=== PATIENT | male | born 1955 | race African-American/Black ===

== ENCOUNTER 2019-10-14 08:45 | Inpatient (IN) ==
[2019-10-14] MEDS ORDERED: ACETAMINOPHEN 500 MG TABLET ONE (09:06)
[2019-10-14] MEDS ORDERED: ACETAMINOPHEN 500 MG TABLET PO STA (09:36)
[2019-10-14] MEDS ORDERED: SODIUM CHLORIDE 0.9% 1,000 ML IV STA ×2 (09:36→09:58)
[2019-10-14] MEDS ORDERED: BENZTROPINE 2 MG/2 ML AMP IV ONE (09:40)
[2019-10-14 09:56] LABS: Basophils % 0.3 % (0.0-0.8); Hematocrit 39.9 VOL% (42.0-52.0); Immature Granulocytes % 1.2 %; Immature Granulocytes Absolute 0.04 #; Lymphocytes # 0.3 10*3/uL (1.4-4.0); Lymphocytes % 9.2 % (21.2-54.2); Mean Corpuscular HGB Conc 32.6 GM/DL (32-36); Mean Corpuscular Volume 81.6 FL (87-102); Mean Platelet Volume 11.6 FL (9.6-12.0); Monocytes % 13.1 % (1.7-12.7); Neutrophils % 76.2 % (38.7-73.9); Platelet Count 133 T/CUMM (130-400); Red Blood Count 4.89 MC/CUMM (3.8-5.5); Red Cell Distribution Width 13.7 % (9.3-17.3); White Blood Count 3.4 T/CUMM (4-12)
[2019-10-14 10:09] LABS: Bilirubin,Total 0.8 MG/DL (0.2-1.0); Calcium 7.9 MG/DL (8.5-10.1); Osmolality,Calculated 287.8 MOS/KG (273-304); Total Protein 6.4 G/DL (6.4-8.3)
[2019-10-14] MEDS ORDERED: PIPERACILLIN/TAZOBACTAM 3,375 MG VIAL IV ONE (10:19)
[2019-10-14] MEDS ORDERED: VANCOMYCIN 1,000 MG VIAL ONE (10:19)
[2019-10-14] MEDS ORDERED: SODIUM CHLORIDE 0.9% 2,500 ML IV ONE (10:21)
[2019-10-14] MEDS ORDERED: MEROPENEM 1,000 MG in SODIUM CHLORIDE 0.9% 100 ML IV ONE (10:23)
[2019-10-14] MEDS ORDERED: VANCOMYCIN INJ 1,250 MG in SODIUM CHLORIDE 0.9% 250 ML IV SCH ×2 (10:30→13:30)
[2019-10-14] MEDS ORDERED: MEROPENEM 500 MG VIAL ONE (10:32)
[2019-10-14 11:01] LABS: Band Neutrophils 12 % (0-10); Hypochromasia 2+; Lymphocytes 14 % (20-55); Metamyelocytes 3 %; Microcytosis 1+; Polychromasia Slight; Reactive Lymphocytes Few; Segmented Neutrophils 54 % (50-85); Total Cells Counted 100
[2019-10-14 11:02] LABS: Atypical Lymphocytes Few; Platelet Estimate Adequate
[2019-10-14] MEDS ORDERED: ALBUTEROL 2.5 MG/3 ML NEB RESP TX PRN (11:23)
[2019-10-14] MEDS ORDERED: ONDANSETRON 4 MG/2 ML VIAL IV PRN (11:23)
[2019-10-14] MEDS ORDERED: SODIUM BICARBONATE 50 MEQ/50 ML VIAL IV STA (11:26)
[2019-10-14] MEDS ORDERED: VANCOMYCIN INJ 250 MG in SODIUM CHLORIDE 0.9% 100 ML IV ONE (11:30)
[2019-10-14] MEDS ORDERED: LACTATED RINGERS 1,000 ML IV SCH (11:30)
[2019-10-14 12:07] LABS: Apearance,Urine CLOUDY (Clear); Bilirubin,Urine Negative (Negative); Blood, Urine Large mg/dL (Negative); Glucose,Urine (UA) Negative (Negative); Hyaline Casts,Urine 26 /LPF (0-3); Ketones,Urine Negative (Negative); Mucus,Urine Moderate /LPF (Occasional); Nitrite,Urine Negative (Negative); Protein,Urine 30 MG/DL; RBC,Urine 13 /HPF (0-4); Sperm,Urine Many /HPF (Negative); Urine Color Amber (Yellow); Urine Specific Gravity 1.025 (1.001-1.035); Urine Urobilinogen < 2.0 EU/DL (0.2-1.0)
[2019-10-14 12:12] LABS: ABG Base Excess -6.6 MMOL/L (-2.5-2.5); ABG Oxygen Saturation 98.5 % (95-100); ABG PCO2 32.1 MM HG (35-48); ABG PH 7.356 (7.35-7.45); ABG TCO2 16.4 MMOL/L (23-27); Allen Test Positive
[2019-10-14] MEDS: SODIUM BICARB INJ 150 MEQ in DEXTROSE 5% 850 ML IV SCH ×2 (12:50→19:05)
[2019-10-14] MEDS: metroNIDAZOLE INJ 500 MG in PREMIX 1 EACH IV SCH ×2 (13:00→20:09)
[2019-10-14] MEDS: PANTOPRAZOLE 40 MG VIAL IV SCH (13:01)
[2019-10-14] MEDS: ENOXAPARIN 30 MG/0.3 ML SYRINGE SUBCUT SCH (13:01)
[2019-10-14] MEDS ORDERED: POTASSIUM CHLORIDE 20 MEQ TABLET PO ONE (13:28)
[2019-10-14] MEDS ORDERED: SODIUM CHLORIDE 0.9% 500 ML IV ONE (16:41)
[2019-10-14] MEDS: MEROPENEM 500 MG in SODIUM CHLORIDE 0.9% 100 ML IV SCH (17:16)
[2019-10-14] MEDS ORDERED: NOREPINEPHRINE 4 MG/4 ML VIAL IV ONE (18:15)
[2019-10-14] MEDS: NOREPINEPHRINE 8 MG in SODIUM CHLORIDE 0.9% 242 ML IV PRN (18:21)
[2019-10-15] MEDS: MEROPENEM 500 MG in SODIUM CHLORIDE 0.9% 100 ML IV SCH ×3 (00:45→17:10)
[2019-10-15] MEDS: SODIUM BICARB INJ 150 MEQ in DEXTROSE 5% 850 ML IV SCH ×4 (02:35→22:43)
[2019-10-15] MEDS: NOREPINEPHRINE 8 MG in SODIUM CHLORIDE 0.9% 242 ML IV PRN ×3 (03:20→20:55)
[2019-10-15] MEDS: metroNIDAZOLE INJ 500 MG in PREMIX 1 EACH IV SCH ×3 (04:25→19:26)
[2019-10-15 05:38] LABS: Basophils % 0.7 % (0.0-0.8); Hematocrit 33.6 VOL% (42.0-52.0); Hemoglobin 11.4 GM/DL (14.0-18.0); Immature Granulocytes % 1.2 %; Immature Granulocytes Absolute 0.05 #; Lymphocytes # 0.6 10*3/uL (1.4-4.0); Lymphocytes % 13.4 % (21.2-54.2); Mean Corpuscular HGB Conc 33.9 GM/DL (32-36); Mean Corpuscular Volume 79.6 FL (87-102); Mean Platelet Volume 11.3 FL (9.6-12.0); Monocytes % 9.8 % (1.7-12.7); Neutrophils % 74.9 % (38.7-73.9); Platelet Count 102 T/CUMM (130-400); Red Blood Count 4.22 MC/CUMM (3.8-5.5); Red Cell Distribution Width 13.8 % (9.3-17.3); White Blood Count 4.2 T/CUMM (4-12)
[2019-10-15 06:11] LABS: Band Neutrophils 4 % (0-10); Lymphocytes 16 % (20-55); Platelet Estimate Decreased; Segmented Neutrophils 70 % (50-85); Total Cells Counted 100
[2019-10-15 06:12] LABS: Hypochromasia 1+; Microcytosis 1+
[2019-10-15 06:15] LABS: Albumin 2.2 G/DL (3.4-5.0); Bilirubin,Total 0.6 MG/DL (0.2-1.0); Calcium 7.2 MG/DL (8.5-10.1); Osmolality,Calculated 294.3 MOS/KG (273-304); Total Protein 5.2 G/DL (6.4-8.3)
[2019-10-15] MEDS: POTASSIUM CHLORIDE RIDER 10 MEQ in PREMIX 1 EACH IV PRN ×5 (07:09→11:40)
[2019-10-15] MEDS ORDERED: LACTATED RINGERS 1,000 ML IV ONE (08:34)
[2019-10-15] MEDS: OLANZapine 5 MG TABLET PO SCH (10:49)
[2019-10-15] MEDS: PANTOPRAZOLE 40 MG VIAL IV SCH (11:03)
[2019-10-15] MEDS: ENOXAPARIN 30 MG/0.3 ML SYRINGE SUBCUT SCH (11:05)
[2019-10-15] MEDS: BENZTROPINE 1 MG TABLET PO SCH ×2 (11:14→17:08)
[2019-10-15 11:57] LABS: Hepatitis B Core IgM Quant 0.06 Index; Hepatitis B Surface Ag Quant 0.52 Index; Hepatitis B Surface Ag Result Negative (Negative); Hepatitis C Virus Ab Quant 0.12 Index; Hepatitis C Virus Ab Result Negative (Negative)
[2019-10-15] MEDS: GABAPENTIN 300 MG CAPSULE PO SCH (17:08)
[2019-10-15] MEDS: FANAPT PO SCH (17:14)
[2019-10-15] MEDS ORDERED: POTASSIUM CHLORIDE 20 MEQ TABLET PO ONE ×2 (17:49→18:25)
[2019-10-15] MEDS: MIRTAZAPINE 15 MG TABLET PO SCH (20:13)
[2019-10-16] MEDS: MEROPENEM 500 MG in SODIUM CHLORIDE 0.9% 100 ML IV SCH (00:46)
[2019-10-16] MEDS: metroNIDAZOLE INJ 500 MG in PREMIX 1 EACH IV SCH (03:55)
[2019-10-16 05:25] LABS: Basophils % 0.3 % (0.0-0.8); Eosinophils % 0.2 % (0.00-10.9); Hemoglobin 10.9 GM/DL (14.0-18.0); Immature Granulocytes Absolute 0.06 #; Lymphocytes # 0.8 10*3/uL (1.4-4.0); Lymphocytes % 12.8 % (21.2-54.2); Mean Corpuscular Volume 80.5 FL (87-102); Mean Platelet Volume 11.4 FL (9.6-12.0); Monocytes % 10.5 % (1.7-12.7); Neutrophils % 75.2 % (38.7-73.9); Platelet Count 104 T/CUMM (130-400); Red Cell Distribution Width 13.8 % (9.3-17.3); White Blood Count 5.9 T/CUMM (4-12)
[2019-10-16 05:48] LABS: Anisocytosis Slight; Hypochromasia 1+; Lymphocytes 13 % (20-55); Microcytosis 1+; Platelet Estimate Normal; Segmented Neutrophils 83 % (50-85); Total Cells Counted 100
[2019-10-16 05:50] LABS: Target Cells Few
[2019-10-16 05:55] LABS: Albumin 2.1 G/DL (3.4-5.0); Bilirubin,Total 0.5 MG/DL (0.2-1.0); Calcium 7.5 MG/DL (8.5-10.1); Osmolality,Calculated 290.3 MOS/KG (273-304); Total Protein 4.8 G/DL (6.4-8.3)
[2019-10-16] MEDS: SODIUM BICARB INJ 150 MEQ in DEXTROSE 5% 850 ML IV SCH (06:38)
[2019-10-16] MEDS: POTASSIUM CHLORIDE RIDER 10 MEQ in PREMIX 1 EACH IV PRN ×3 (06:43→10:16)
[2019-10-16] MEDS ORDERED: LACTATED RINGERS 2,000 ML IV ONE (08:16)
[2019-10-16] MEDS: OLANZapine 5 MG TABLET PO SCH (09:18)
[2019-10-16] MEDS: GABAPENTIN 300 MG CAPSULE PO SCH ×2 (09:18→16:00)
[2019-10-16] MEDS: POTASSIUM CHLORIDE 20 MEQ TABLET PO SCH ×2 (09:18→12:58)
[2019-10-16] MEDS: BENZTROPINE 1 MG TABLET PO SCH ×3 (09:18→17:06)
[2019-10-16] MEDS: FANAPT PO SCH ×2 (09:19→16:22)
[2019-10-16] MEDS: PANTOPRAZOLE 40 MG VIAL IV SCH (12:58)
[2019-10-16] MEDS: ENOXAPARIN 30 MG/0.3 ML SYRINGE SUBCUT SCH (12:59)
[2019-10-16] MEDS: metroNIDAZOLE INJ 250 MG in IV BAG 1 EACH IV SCH ×2 (12:59→21:32)
[2019-10-16] MEDS ORDERED: MEROPENEM 500 MG in SODIUM CHLORIDE 0.9% 100 ML IV SCH (13:00)
[2019-10-16] MEDS: MIRTAZAPINE 15 MG TABLET PO SCH (21:32)
[2019-10-17] MEDS: metroNIDAZOLE INJ 250 MG in IV BAG 1 EACH IV SCH (05:26)
[2019-10-17 05:50] LABS: Basophils % 0.2 % (0.0-0.8); Eosinophils # 0.1 10*3/uL (0.0-0.87); Eosinophils % 1.4 % (0.00-10.9); Hemoglobin 10.4 GM/DL (14.0-18.0); Immature Granulocytes % 0.9 %; Immature Granulocytes Absolute 0.04 #; Lymphocytes # 0.9 10*3/uL (1.4-4.0); Lymphocytes % 20.2 % (21.2-54.2); Mean Corpuscular HGB Conc 32.5 GM/DL (32-36); Mean Corpuscular Volume 81.4 FL (87-102); Mean Platelet Volume 11.9 FL (9.6-12.0); Monocytes % 10.9 % (1.7-12.7); Neutrophils % 66.4 % (38.7-73.9); Platelet Count 104 T/CUMM (130-400); Red Blood Count 3.93 MC/CUMM (3.8-5.5); Red Cell Distribution Width 13.9 % (9.3-17.3); White Blood Count 4.4 T/CUMM (4-12)
[2019-10-17 06:06] LABS: Calcium 7.7 MG/DL (8.5-10.1); Osmolality,Calculated 287.3 MOS/KG (273-304)
[2019-10-17] MEDS: OLANZapine 5 MG TABLET PO SCH (09:17)
[2019-10-17] MEDS: BENZTROPINE 1 MG TABLET PO SCH ×3 (09:17→17:00)
[2019-10-17] MEDS: ENOXAPARIN 30 MG/0.3 ML SYRINGE SUBCUT SCH (09:17)
[2019-10-17] MEDS: PANTOPRAZOLE 40 MG VIAL IV SCH (09:17)
[2019-10-17] MEDS: FANAPT PO SCH ×2 (09:18→16:00)
[2019-10-17] MEDS: GABAPENTIN 300 MG CAPSULE PO SCH ×2 (09:18→17:00)
[2019-10-17] MEDS: metroNIDAZOLE 500 MG TABLET PO SCH ×2 (17:00→20:23)
[2019-10-17] MEDS: MIRTAZAPINE 15 MG TABLET PO SCH (20:23)
[2019-10-18 05:57] LABS: Basophils % 0.2 % (0.0-0.8); Eosinophils # 0.1 10*3/uL (0.0-0.87); Eosinophils % 1.2 % (0.00-10.9); Hematocrit 33.1 VOL% (42.0-52.0); Hemoglobin 10.7 GM/DL (14.0-18.0); Immature Granulocytes Absolute 0.04 #; Lymphocytes # 1.1 10*3/uL (1.4-4.0); Lymphocytes % 25.9 % (21.2-54.2); Mean Corpuscular HGB Conc 32.3 GM/DL (32-36); Mean Corpuscular Volume 81.1 FL (87-102); Mean Platelet Volume 11.3 FL (9.6-12.0); Monocytes % 16.4 % (1.7-12.7); Neutrophils % 55.3 % (38.7-73.9); Platelet Count 123 T/CUMM (130-400); Red Blood Count 4.08 MC/CUMM (3.8-5.5); White Blood Count 4.2 T/CUMM (4-12)
[2019-10-18 06:14] LABS: Calcium 7.9 MG/DL (8.5-10.1)
[2019-10-18 06:21] LABS: Band Neutrophils 1 % (0-10); Eosinophils 2 % (0-10); Lymphocytes 18 % (20-55); Segmented Neutrophils 68 % (50-85); Total Cells Counted 100
[2019-10-18 06:22] LABS: Hypochromasia 1+; Microcytosis 1+; Platelet Estimate Adequate
[2019-10-18] MEDS ORDERED: BENZTROPINE 1 MG TABLET PO SCH (08:00)
[2019-10-18] MEDS: ENOXAPARIN 30 MG/0.3 ML SYRINGE SUBCUT SCH (08:49)
[2019-10-18] MEDS: FANAPT PO SCH ×2 (08:49→18:05)
[2019-10-18] MEDS: GABAPENTIN 300 MG CAPSULE PO SCH ×2 (08:50→18:05)
[2019-10-18] MEDS: metroNIDAZOLE 500 MG TABLET PO SCH (08:50)
[2019-10-18] MEDS: OLANZapine 5 MG TABLET PO SCH (08:50)
[2019-10-18] MEDS: BENZTROPINE 1 MG TABLET PO SCH ×3 (08:51→18:05)
[2019-10-18] MEDS: PANTOPRAZOLE 40 MG VIAL IV SCH (12:45)
[2019-10-18] MEDS ORDERED: TUBERCULIN SKIN TEST 0.1 ML SYRINGE INTRADERM ONE (13:00)
[2019-10-18] MEDS ORDERED: MIRTAZAPINE PO SCH (21:00)
[2019-10-18] MEDS: MIRTAZAPINE 15 MG TABLET PO SCH (21:20)
[2019-10-19 05:42] LABS: Basophils % 0.3 % (0.0-0.8); Eosinophils # 0.1 10*3/uL (0.0-0.87); Eosinophils % 1.2 % (0.00-10.9); Hematocrit 34.3 VOL% (42.0-52.0); Hemoglobin 10.9 GM/DL (14.0-18.0); Immature Granulocytes % 1.2 %; Immature Granulocytes Absolute 0.07 #; Lymphocytes # 1.1 10*3/uL (1.4-4.0); Lymphocytes % 19.7 % (21.2-54.2); Mean Corpuscular HGB Conc 31.8 GM/DL (32-36); Mean Corpuscular Volume 83.1 FL (87-102); Monocytes % 13.9 % (1.7-12.7); Neutrophils % 63.7 % (38.7-73.9); Platelet Count 152 T/CUMM (130-400); Red Blood Count 4.13 MC/CUMM (3.8-5.5); Red Cell Distribution Width 14.1 % (9.3-17.3); White Blood Count 5.8 T/CUMM (4-12)
[2019-10-19 06:26] LABS: Calcium 7.9 MG/DL (8.5-10.1)
[2019-10-19] MEDS: GABAPENTIN 300 MG CAPSULE PO SCH ×2 (09:31→16:50)
[2019-10-19] MEDS: OLANZapine 5 MG TABLET PO SCH (09:31)
[2019-10-19] MEDS: BENZTROPINE 1 MG TABLET PO SCH ×3 (09:31→16:50)
[2019-10-19] MEDS: PANTOPRAZOLE 40 MG VIAL IV SCH (09:32)
[2019-10-19] MEDS: FANAPT PO SCH ×2 (09:32→16:51)
[2019-10-19] MEDS: ENOXAPARIN 30 MG/0.3 ML SYRINGE SUBCUT SCH (09:34)
[2019-10-19 11:24] LABS: Albumin 2.1 G/DL (3.4-5.0); Bilirubin,Direct 0.11 MG/DL (0.0-0.20); Bilirubin,Indirect 0.4 MG/DL (0.0-1.0); Bilirubin,Total 0.5 MG/DL (0.2-1.0); Total Protein 4.9 G/DL (6.4-8.3)
[2019-10-19] MEDS: DEXTROSE 5% NACL 0.45% 1,000 ML IV SCH (12:46)
[2019-10-19] MEDS: ACETAMINOPHEN 325 MG TABLET PO PRN (18:16)
[2019-10-19] MEDS: MIRTAZAPINE 15 MG TABLET PO SCH (21:59)
[2019-10-20] MEDS: ACETAMINOPHEN 325 MG TABLET PO PRN ×2 (02:43→20:35)
[2019-10-20 06:59] LABS: Calcium 7.8 MG/DL (8.5-10.1); Osmolality,Calculated 291.1 MOS/KG (273-304)
[2019-10-20 07:03] LABS: Alanine Aminotransferase 123 U/L (16-61); Albumin 2.1 G/DL (3.4-5.0); Alkaline Phosphatase 438 U/L (45-117); Aspartate Amino Transferase 220 U/L (0-37); Bilirubin,Direct < 0.100 MG/DL (0.0-0.20); Bilirubin,Indirect 0.7 MG/DL (0.0-1.0)
[2019-10-20] MEDS ORDERED: PANTOPRAZOLE 40 MG TABLET PO SCH (09:00)
[2019-10-20] MEDS: DEXTROSE 5% NACL 0.45% 1,000 ML IV SCH (09:40)
[2019-10-20] MEDS: BENZTROPINE 1 MG TABLET PO SCH ×3 (09:41→16:44)
[2019-10-20] MEDS: GABAPENTIN 300 MG CAPSULE PO SCH (09:41)
[2019-10-20] MEDS: ENOXAPARIN 30 MG/0.3 ML SYRINGE SUBCUT SCH (09:41)
[2019-10-20] MEDS: OLANZapine 5 MG TABLET PO SCH (09:41)
[2019-10-20] MEDS: FANAPT PO SCH ×2 (09:42→16:44)
[2019-10-20] MEDS: GABAPENTIN 100 MG CAPSULE PO SCH (16:44)
[2019-10-20] MEDS: MIRTAZAPINE 15 MG TABLET PO SCH (20:36)
[2019-10-21] MEDS: DEXTROSE 5% NACL 0.45% 1,000 ML IV SCH (07:30)
[2019-10-21] MEDS: FANAPT PO SCH ×2 (09:05→17:07)
[2019-10-21] MEDS: ENOXAPARIN 30 MG/0.3 ML SYRINGE SUBCUT SCH (09:05)
[2019-10-21] MEDS: GABAPENTIN 100 MG CAPSULE PO SCH ×2 (09:05→17:07)
[2019-10-21] MEDS: OLANZapine 5 MG TABLET PO SCH (09:05)
[2019-10-21] MEDS: BENZTROPINE 1 MG TABLET PO SCH ×3 (09:05→17:07)
[2019-10-21] MEDS: MIRTAZAPINE 15 MG TABLET PO SCH (21:22)
[2019-10-21] MEDS: ACETAMINOPHEN 325 MG TABLET PO PRN (23:23)
[2019-10-22 05:43] LABS: Bilirubin,Total 0.5 MG/DL (0.2-1.0); Calcium 7.7 MG/DL (8.5-10.1); Osmolality,Calculated 290.1 MOS/KG (273-304)
[2019-10-22 07:49] LABS: Basophils % 0.2 % (0.0-0.8); Eosinophils # 0.1 10*3/uL (0.0-0.87); Hematocrit 32.4 VOL% (42.0-52.0); Hemoglobin 10.5 GM/DL (14.0-18.0); Immature Granulocytes % 1.1 %; Immature Granulocytes Absolute 0.07 #; Lymphocytes # 1.4 10*3/uL (1.4-4.0); Lymphocytes % 21.6 % (21.2-54.2); Mean Corpuscular HGB Conc 32.4 GM/DL (32-36); Mean Corpuscular Volume 81.6 FL (87-102); Mean Platelet Volume 10.2 FL (9.6-12.0); Monocytes % 7.1 % (1.7-12.7); Platelet Count 266 T/CUMM (130-400); Red Blood Count 3.97 MC/CUMM (3.8-5.5); White Blood Count 6.3 T/CUMM (4-12)
[2019-10-22] MEDS: FANAPT PO SCH (09:31)
[2019-10-22] MEDS: GABAPENTIN 100 MG CAPSULE PO SCH (09:31)
[2019-10-22] MEDS: ENOXAPARIN 30 MG/0.3 ML SYRINGE SUBCUT SCH (09:31)
[2019-10-22] MEDS: BENZTROPINE 1 MG TABLET PO SCH ×2 (09:31→11:39)
[2019-10-22] MEDS: OLANZapine 5 MG TABLET PO SCH (09:33)
[2019-10-22 12:15] VITALS: BP 128/83
== END 2019-10-22 15:18 | DRG 871 ==
LOC: EDUNIT# → EDBD → N.ED 08:45 → SUATTDRO 11:23 → N.EDINP 11:23 → SUPCPDRO 11:23 → N.CC 12:34 → N.2E 10-16 15:30
PROVIDERS: ADMIT Family Medicine; ATTEND Internal Medicine

== ENCOUNTER 2020-05-20 15:01 | Inpatient (IN) ==
[2020-05-20 16:34] LABS: Basophils % 0.6 % (0.0-0.8); Eosinophils % 0.7 % (0.00-10.9); Hematocrit 33.6 VOL% (42.0-52.0); Hemoglobin 10.7 GM/DL (14.0-18.0); Immature Granulocytes % 0.6 %; Immature Granulocytes Absolute 0.03 #; Lymphocytes # 1.5 10*3/uL (1.4-4.0); Lymphocytes % 27.7 % (21.2-54.2); Mean Corpuscular HGB Conc 31.8 GM/DL (32-36); Mean Corpuscular Volume 79.2 FL (87-102); Monocytes % 12.2 % (1.7-12.7); Neutrophils % 58.2 % (38.7-73.9); Platelet Count 274 T/CUMM (130-400); Red Blood Count 4.24 MC/CUMM (3.8-5.5); Red Cell Distribution Width 14.3 % (9.3-17.3); White Blood Count 5.4 T/CUMM (4-12)
[2020-05-20 16:37] LABS: Barbiturates Screen,Urine Negative (Negative); Benzodiazepines Screen,Urine Negative (Negative); Cannabinoid Screen,Urine Negative (Negative); Opiate Screen,Urine Negative (Negative); Phencyclidine Screen,Urine Negative (Negative)
[2020-05-20 16:38] LABS: Apearance,Urine CLOUDY (Clear); Bacteria,Urine Occasional /HPF (Few); Bilirubin,Urine Negative (Negative); Blood, Urine Moderate mg/dL (Negative); Glucose,Urine (UA) Negative (Negative); Hyaline Casts,Urine 1 /LPF (0-3); Ketones,Urine Negative (Negative); Mucus,Urine Occasional /LPF (Occasional); Nitrite,Urine Negative (Negative); Protein,Urine 100 MG/DL; RBC,Urine 8 /HPF (0-4); Squamous Epithelial Cell,Urine Occasional /HPF (0-10); Urine Color Yellow (Yellow); Urine Specific Gravity 1.018 (1.001-1.035); Urine Urobilinogen < 2.0 EU/DL (0.2-1.0); WBC,Urine 105 /HPF (0-6)
[2020-05-20] MEDS ORDERED: LEVOFLOXACIN INJ 750 MG in PREMIX 1 EACH IV STA (16:51)
[2020-05-20] MEDS ORDERED: SODIUM CHLORIDE 0.9% 1,000 ML IV STA (16:58)
[2020-05-20 17:03] LABS: Alanine Aminotransferase 10 U/L (16-61); Alkaline Phosphatase 1672 U/L (45-117); Aspartate Amino Transferase 16 U/L (0-37); Bilirubin,Total < 0.39 MG/DL (0.2-1.0); Blood Urea Nitrogen 47 MG/DL (7-18); Calcium 9.1 MG/DL (8.5-10.1); Estimated Glom Filtration Rate 60 ML/MIN; Glucose 90 MG/DL (74-106); Osmolality,Calculated 286.7 MOS/KG (273-304); Thyroid Stimulating Hormone 0.762 uIU/ml (0.358-3.74); Total Protein 7.3 G/DL (6.4-8.3)
[2020-05-20] MEDS ORDERED: LACTULOSE 20 GM/30 ML UDCUP PO PRN (18:05)
[2020-05-20] MEDS ORDERED: ONDANSETRON 4 MG/2 ML VIAL IV PRN (18:05)
[2020-05-20] MEDS ORDERED: ALBUTEROL/IPRATROPIUM 3 ML NEB RESP TX PRN (18:05)
[2020-05-20] MEDS ORDERED: DEXTROSE 50% 25 GM/50 ML VIAL IV PRN (18:05)
[2020-05-20] MEDS ORDERED: hydrALAZINE 20 MG/1 ML VIAL IV PRN (18:05)
[2020-05-20] MEDS ORDERED: DOCUSATE SODIUM 100 MG CAPSULE PO PRN (18:05)
[2020-05-20] MEDS ORDERED: MORPHINE 4 MG/1 ML VIAL IV PRN (18:05)
[2020-05-20] MEDS ORDERED: GLUCAGON 1 MG VIAL IM PRN (18:05)
[2020-05-20] MEDS ORDERED: LORazepam 2 MG/1 ML VIAL IV STA (21:55)
[2020-05-20] MEDS: SODIUM CHLORIDE 0.9% 1,000 ML IV SCH (23:00)
[2020-05-20] MEDS: ENOXAPARIN 40 MG/0.4 ML SYRINGE SUBCUT SCH (23:00)
[2020-05-20] MEDS: VANCOMYCIN INJ 1,000 MG in SODIUM CHLORIDE 0.9% 250 ML IV SCH (23:07)
[2020-05-21 07:22] LABS: Basophils % 0.2 % (0.0-0.8); Eosinophils % 0.6 % (0.00-10.9); Hematocrit 36.4 VOL% (42.0-52.0); Hemoglobin 11.6 GM/DL (14.0-18.0); Immature Granulocytes % 0.8 %; Immature Granulocytes Absolute 0.04 #; Lymphocytes # 1.7 10*3/uL (1.4-4.0); Lymphocytes % 32.7 % (21.2-54.2); Mean Corpuscular HGB Conc 31.9 GM/DL (32-36); Mean Corpuscular Volume 79.6 FL (87-102); Mean Platelet Volume 9.6 FL (9.6-12.0); Monocytes % 10.8 % (1.7-12.7); Neutrophils % 54.9 % (38.7-73.9); Platelet Count 286 T/CUMM (130-400); Red Blood Count 4.57 MC/CUMM (3.8-5.5); Red Cell Distribution Width 14.5 % (9.3-17.3); White Blood Count 5.1 T/CUMM (4-12)
[2020-05-21 07:48] LABS: Albumin 3.2 G/DL (3.4-5.0); Bilirubin,Total 1.3 MG/DL (0.2-1.0); Calcium 9.7 MG/DL (8.5-10.1); Osmolality,Calculated 283.7 MOS/KG (273-304); Risk Ratio 4.02; Total Protein 7.7 G/DL (6.4-8.3)
[2020-05-21] MEDS ORDERED: LORazepam 2 MG/1 ML VIAL ONE (08:50)
[2020-05-21] MEDS ORDERED: LORazepam 2 MG/1 ML VIAL IV ONE (08:52)
[2020-05-21 09:41] LABS: Apearance,Urine CLOUDY (Clear); Bacteria,Urine Moderate /HPF (Few); Bilirubin,Urine Negative (Negative); Blood, Urine Moderate mg/dL (Negative); Glucose,Urine (UA) Negative (Negative); Ketones,Urine Negative (Negative); Mucus,Urine Occasional /LPF (Occasional); Nitrite,Urine Negative (Negative); Protein,Urine 100 MG/DL; RBC,Urine 117 /HPF (0-4); Urine Color Amber (Yellow); Urine Specific Gravity 1.019 (1.001-1.035); Urine Urobilinogen < 2.0 EU/DL (0.2-1.0); WBC,Urine 220 /HPF (0-6)
[2020-05-21] MEDS: PANTOPRAZOLE 40 MG TABLET PO SCH (09:48)
[2020-05-21] MEDS: BENZTROPINE 1 MG TABLET PO SCH ×3 (09:48→21:05)
[2020-05-21] MEDS: GABAPENTIN 400 MG CAPSULE PO SCH ×4 (09:48→21:04)
[2020-05-21] MEDS: FINASTERIDE 5 MG TABLET PO SCH (09:48)
[2020-05-21] MEDS: TAMSULOSIN 0.4 MG CAPSULE PO SCH ×2 (09:48→21:04)
[2020-05-21] MEDS: guaiFENesin/DM ER 600-30 MG TABLET PO SCH ×3 (09:55→21:04)
[2020-05-21] MEDS: SODIUM CHLORIDE 0.9% 1,000 ML IV SCH ×2 (12:15→22:49)
[2020-05-21] MEDS: VANCOMYCIN INJ 1,000 MG in SODIUM CHLORIDE 0.9% 250 ML IV SCH ×2 (12:15→22:49)
[2020-05-21] MEDS: ACETAMINOPHEN 325 MG TABLET PO PRN (12:52)
[2020-05-21] MEDS ORDERED: LEVOFLOXACIN INJ 750 MG in PREMIX 1 EACH IV SCH (18:00)
[2020-05-21] MEDS: ENOXAPARIN 40 MG/0.4 ML SYRINGE SUBCUT SCH (21:04)
[2020-05-21] MEDS: MIRTAZAPINE 15 MG TABLET PO SCH (21:04)
[2020-05-22 04:12] LABS: Basophils % 0.2 % (0.0-0.8); Eosinophils % 0.8 % (0.00-10.9); Hematocrit 30.3 VOL% (42.0-52.0); Hemoglobin 9.3 GM/DL (14.0-18.0); Immature Granulocytes % 0.8 %; Immature Granulocytes Absolute 0.04 #; Lymphocytes # 1.6 10*3/uL (1.4-4.0); Lymphocytes % 31.4 % (21.2-54.2); Mean Corpuscular HGB Conc 30.7 GM/DL (32-36); Mean Corpuscular Volume 82.6 FL (87-102); Mean Platelet Volume 9.7 FL (9.6-12.0); Monocytes % 13.2 % (1.7-12.7); Neutrophils % 53.6 % (38.7-73.9); Platelet Count 194 T/CUMM (130-400); Red Blood Count 3.67 MC/CUMM (3.8-5.5); Red Cell Distribution Width 14.6 % (9.3-17.3); White Blood Count 4.9 T/CUMM (4-12)
[2020-05-22 04:54] LABS: Alanine Aminotransferase 9 U/L (16-61); Albumin 2.4 G/DL (3.4-5.0); Alkaline Phosphatase 1317 U/L (45-117); Aspartate Amino Transferase 14 U/L (0-37); Bilirubin,Total < 0.39 MG/DL (0.2-1.0); Blood Urea Nitrogen 19 MG/DL (7-18); Calcium 9.1 MG/DL (8.5-10.1); Estimated Glom Filtration Rate 117 ML/MIN; Glucose 92 MG/DL (74-106); Osmolality,Calculated 282.3 MOS/KG (273-304); Total Protein 5.7 G/DL (6.4-8.3)
[2020-05-22] MEDS: SODIUM CHLORIDE 0.9% 1,000 ML IV SCH ×3 (08:24→16:28)
[2020-05-22] MEDS: GABAPENTIN 400 MG CAPSULE PO SCH ×4 (08:25→21:43)
[2020-05-22] MEDS: PANTOPRAZOLE 40 MG TABLET PO SCH (08:25)
[2020-05-22] MEDS: guaiFENesin/DM ER 600-30 MG TABLET PO SCH ×2 (08:25→21:44)
[2020-05-22] MEDS: BENZTROPINE 1 MG TABLET PO SCH ×3 (08:25→21:44)
[2020-05-22] MEDS: FINASTERIDE 5 MG TABLET PO SCH (08:25)
[2020-05-22] MEDS: TAMSULOSIN 0.4 MG CAPSULE PO SCH ×2 (08:25→21:44)
[2020-05-22] MEDS: ACETAMINOPHEN 325 MG TABLET PO PRN ×3 (08:47→21:44)
[2020-05-22] MEDS: ENOXAPARIN 40 MG/0.4 ML SYRINGE SUBCUT SCH (21:43)
[2020-05-22] MEDS: MIRTAZAPINE 15 MG TABLET PO SCH (21:43)
[2020-05-23 05:06] LABS: Basophils % 0.3 % (0.0-0.8); Eosinophils # 0.1 10*3/uL (0.0-0.87); Eosinophils % 1.6 % (0.00-10.9); Hematocrit 25.9 VOL% (42.0-52.0); Immature Granulocytes % 0.9 %; Immature Granulocytes Absolute 0.03 #; Lymphocytes # 1.2 10*3/uL (1.4-4.0); Lymphocytes % 36.3 % (21.2-54.2); Mean Corpuscular HGB Conc 30.9 GM/DL (32-36); Mean Corpuscular Volume 82.7 FL (87-102); Mean Platelet Volume 9.5 FL (9.6-12.0); Monocytes % 12.3 % (1.7-12.7); Neutrophils % 48.6 % (38.7-73.9); Platelet Count 186 T/CUMM (130-400); Red Blood Count 3.13 MC/CUMM (3.8-5.5); Red Cell Distribution Width 14.9 % (9.3-17.3); White Blood Count 3.2 T/CUMM (4-12)
[2020-05-23 06:02] LABS: Alanine Aminotransferase < 9 U/L (16-61); Albumin 1.9 G/DL (3.4-5.0); Alkaline Phosphatase 1082 U/L (45-117); Aspartate Amino Transferase 10 U/L (0-37); Bilirubin,Total < 0.39 MG/DL (0.2-1.0); Blood Urea Nitrogen 14 MG/DL (7-18); Calcium 8.2 MG/DL (8.5-10.1); Estimated Glom Filtration Rate 123 ML/MIN; Glucose 93 MG/DL (74-106); Total Protein 4.9 G/DL (6.4-8.3)
[2020-05-23 07:19] VITALS: BP 98/63
[2020-05-23] MEDS ORDERED: LORazepam 0.5 MG TABLET PO ONE (08:08)
[2020-05-23] MEDS: GABAPENTIN 400 MG CAPSULE PO SCH (08:51)
[2020-05-23] MEDS: TAMSULOSIN 0.4 MG CAPSULE PO SCH (08:51)
[2020-05-23] MEDS: BENZTROPINE 1 MG TABLET PO SCH (08:51)
[2020-05-23] MEDS: guaiFENesin/DM ER 600-30 MG TABLET PO SCH (08:51)
== END 2020-05-23 10:30 | DRG 640 ==
LOC: EDUNIT# → EDBD → N.ED 15:01 → N.EDINP 18:05 → SUATTDRO 18:05 → N.5E 05-21 08:23
PROVIDERS: ADMIT Internal Medicine; ATTEND Internal Medicine

== ENCOUNTER 2020-08-05 06:12 | Inpatient (IN) ==
[~2020-08-05 06:12] MED LIST: GENTAMICIN INJ 160 MG in SODIUM CHLORIDE 0.9% 100 ML IV ONE; LACTATED RINGERS 1,000 ML IV SCH; LEVOFLOXACIN 500 MG TABLET PO STA
[2020-08-05] MEDS ORDERED: FAMOTIDINE 20 MG TABLET PO ONE (06:30)
[2020-08-05] MEDS ORDERED: DIAZEPAM 5 MG TABLET PO ONE (06:30)
[2020-08-05] MEDS ORDERED: ACETAMINOPHEN 500 MG TABLET PO ONE (06:30)
[2020-08-05] MEDS ORDERED: GABAPENTIN 400 MG CAPSULE PO ONE (06:30)
[2020-08-05] MEDS ORDERED: LACTULOSE 20 GM/30 ML UDCUP PO PRN (07:01)
[2020-08-05] MEDS ORDERED: ONDANSETRON 4 MG/2 ML VIAL IV PRN (07:01)
[2020-08-05] MEDS ORDERED: PROMETHAZINE 25 MG/1 ML VIAL IM PRN (07:01)
[2020-08-05] MEDS ORDERED: MEROPENEM 2,000 MG in SODIUM CHLORIDE 0.9% 100 ML IV SCH (07:30)
[2020-08-05] MEDS ORDERED: ACETAMINOPHEN 325 MG TABLET PO SCH (07:30)
[2020-08-05] MEDS ORDERED: GENTAMICIN INJ 240 MG in SODIUM CHLORIDE 0.9% 100 ML IV SCH (07:30)
[2020-08-05 08:16] LABS: Basophils % 0.4 % (0.0-0.8); Eosinophils % 0.4 % (0.00-10.9); Hematocrit 29.8 VOL% (42.0-52.0); Hemoglobin 9.3 GM/DL (14.0-18.0); Immature Granulocytes % 0.4 %; Immature Granulocytes Absolute 0.02 #; Lymphocytes # 0.8 10*3/uL (1.4-4.0); Mean Corpuscular HGB Conc 31.2 GM/DL (32-36); Mean Corpuscular Volume 81.4 FL (87-102); Mean Platelet Volume 9.6 FL (9.6-12.0); Monocytes % 9.1 % (1.7-12.7); Neutrophils % 72.7 % (38.7-73.9); Platelet Count 251 T/CUMM (130-400); Red Blood Count 3.66 MC/CUMM (3.8-5.5); Red Cell Distribution Width 15.9 % (9.3-17.3); White Blood Count 4.7 T/CUMM (4-12)
[2020-08-05 08:42] LABS: Calcium 8.3 MG/DL (8.5-10.1); Osmolality,Calculated 281.3 MOS/KG (273-304)
[2020-08-05] MEDS ORDERED: ILOPERIDONE 4 MG PO SCH (09:00)
[2020-08-05] MEDS ORDERED: SODIUM PHOSPHATE ENEMA 133 ML BOTTLE RECTAL ONE (09:53)
[2020-08-05] MEDS ORDERED: MAGNESIUM CITRATE 300 ML BOTTLE PO ONE (09:54)
[2020-08-05] MEDS ORDERED: BISACODYL 5 MG TABLET PO ONE ×2 (10:29→21:00)
[2020-08-05] MEDS: BENZTROPINE 1 MG TABLET PO SCH ×3 (11:11→20:41)
[2020-08-05] MEDS: TAMSULOSIN 0.4 MG CAPSULE PO SCH ×2 (11:11→20:42)
[2020-08-05] MEDS: GABAPENTIN 600 MG TABLET PO SCH ×4 (11:12→20:42)
[2020-08-05] MEDS: OLANZapine 5 MG TABLET PO SCH (11:12)
[2020-08-05] MEDS: FINASTERIDE 5 MG TABLET PO SCH (11:13)
[2020-08-05 11:23] LABS: % Iron Saturation 14.5 % (18-50); Ferritin 593.8 ng/ml (26-388)
[2020-08-05 11:40] LABS: Folate 16.1 NG/ML (5.4-24.0)
[2020-08-05] MEDS: clonazePAM 0.5 MG TABLET PO SCH ×3 (12:08→20:42)
[2020-08-05] MEDS: GENTAMICIN INJ 300 MG in SODIUM CHLORIDE 0.9% 100 ML IV SCH (13:43)
[2020-08-05] MEDS: MEROPENEM 2,000 MG in SODIUM CHLORIDE 0.9% 100 ML IV SCH ×2 (14:57→18:17)
[2020-08-05] MEDS ORDERED: MAGNESIUM HYDROXIDE SUSP 30 ML UDCUP PO ONE (18:21)
[2020-08-05] MEDS ORDERED: IRON SUCROSE 300 MG in SODIUM CHLORIDE 0.9% 100 ML IV ONE (20:00)
[2020-08-05] MEDS: rOPINIRole 0.25 MG TABLET PO SCH (20:42)
[2020-08-05] MEDS: FERROUS SULFATE 325 MG TABLET PO SCH (20:42)
[2020-08-05] MEDS: MIRTAZAPINE 15 MG TABLET PO SCH (20:43)
[2020-08-05] MEDS: SODIUM CHLORIDE 0.9% 1,000 ML IV SCH (22:56)
[2020-08-06] MEDS: MEROPENEM 2,000 MG in SODIUM CHLORIDE 0.9% 100 ML IV SCH (02:10)
[2020-08-06 08:14] LABS: Basophils % 0.2 % (0.0-0.8); Eosinophils # 0.1 10*3/uL (0.0-0.87); Eosinophils % 1.4 % (0.00-10.9); Hemoglobin 9.1 GM/DL (14.0-18.0); Immature Granulocytes % 0.4 %; Immature Granulocytes Absolute 0.02 #; Lymphocytes % 20.2 % (21.2-54.2); Mean Corpuscular HGB Conc 31.4 GM/DL (32-36); Mean Corpuscular Volume 81.5 FL (87-102); Mean Platelet Volume 9.1 FL (9.6-12.0); Monocytes % 9.7 % (1.7-12.7); Neutrophils % 68.1 % (38.7-73.9); Platelet Count 242 T/CUMM (130-400); Red Blood Count 3.56 MC/CUMM (3.8-5.5); Red Cell Distribution Width 15.6 % (9.3-17.3)
[2020-08-06 08:55] LABS: Alanine Aminotransferase < 9 U/L (16-61); Albumin 2.6 G/DL (3.4-5.0); Alkaline Phosphatase 1077 U/L (45-117); Aspartate Amino Transferase 24 U/L (0-37); Blood Urea Nitrogen 15 MG/DL (7-18); Calcium 8.6 MG/DL (8.5-10.1); Estimated Glom Filtration Rate 101 ML/MIN; Glucose 93 MG/DL (74-106); Osmolality,Calculated 277.5 MOS/KG (273-304); Total Protein 6.8 G/DL (6.4-8.3)
[2020-08-06] MEDS: OLANZapine 5 MG TABLET PO SCH (09:07)
[2020-08-06] MEDS: FINASTERIDE 5 MG TABLET PO SCH (09:07)
[2020-08-06] MEDS: FERROUS SULFATE 325 MG TABLET PO SCH ×2 (09:07→20:31)
[2020-08-06] MEDS: TAMSULOSIN 0.4 MG CAPSULE PO SCH ×2 (09:07→20:32)
[2020-08-06] MEDS: GABAPENTIN 600 MG TABLET PO SCH ×4 (09:07→20:32)
[2020-08-06] MEDS: SODIUM CHLORIDE 0.9% 1,000 ML IV SCH (09:08)
[2020-08-06] MEDS: BENZTROPINE 1 MG TABLET PO SCH ×3 (09:08→20:31)
[2020-08-06] MEDS: clonazePAM 0.5 MG TABLET PO SCH ×3 (09:08→20:32)
[2020-08-06] MEDS: MEROPENEM 500 MG in SODIUM CHLORIDE 0.9% 100 ML IV SCH ×3 (11:24→23:33)
[2020-08-06] MEDS ORDERED: LEVOFLOXACIN INJ 500 MG in PREMIX 1 EACH IV ONE (11:45)
[2020-08-06] MEDS: GENTAMICIN INJ 300 MG in SODIUM CHLORIDE 0.9% 100 ML IV SCH (15:36)
[2020-08-06] MEDS: MIRTAZAPINE 15 MG TABLET PO SCH (20:32)
[2020-08-06] MEDS: rOPINIRole 0.25 MG TABLET PO SCH (20:32)
[2020-08-07] MEDS: SODIUM CHLORIDE 0.9% 1,000 ML IV SCH ×2 (01:31→13:37)
[2020-08-07] MEDS: MEROPENEM 500 MG in SODIUM CHLORIDE 0.9% 100 ML IV SCH ×3 (05:17→20:03)
[2020-08-07 05:58] LABS: Calcium 8.6 MG/DL (8.5-10.1); Osmolality,Calculated 276.4 MOS/KG (273-304)
[2020-08-07 06:14] LABS: Albumin 2.3 G/DL (3.4-5.0); Alkaline Phosphatase 937 U/L (45-117); Aspartate Amino Transferase 17 U/L (0-37); Blood Urea Nitrogen 9 MG/DL (7-18); Calcium 8.5 MG/DL (8.5-10.1); Estimated Glom Filtration Rate 106 ML/MIN; Glucose 102 MG/DL (74-106); Osmolality,Calculated 277.4 MOS/KG (273-304); Total Protein 6.1 G/DL (6.4-8.3)
[2020-08-07] MEDS ORDERED: IRON SUCROSE 300 MG in SODIUM CHLORIDE 0.9% 100 ML IV ONE ×2 (08:00→12:00)
[2020-08-07] MEDS: clonazePAM 0.5 MG TABLET PO SCH ×3 (08:51→20:02)
[2020-08-07] MEDS: MAGNESIUM HYDROXIDE SUSP 30 ML UDCUP PO SCH ×2 (08:51→20:02)
[2020-08-07 08:52] LABS: Alanine Aminotransferase < 9 U/L (16-61)
[2020-08-07] MEDS: GABAPENTIN 600 MG TABLET PO SCH ×4 (08:52→20:03)
[2020-08-07] MEDS: BENZTROPINE 1 MG TABLET PO SCH ×3 (08:52→20:02)
[2020-08-07] MEDS: TAMSULOSIN 0.4 MG CAPSULE PO SCH ×2 (08:52→20:03)
[2020-08-07] MEDS: LINACLOTIDE 145 MCG CAPSULE PO SCH (08:52)
[2020-08-07] MEDS: FINASTERIDE 5 MG TABLET PO SCH (08:52)
[2020-08-07] MEDS: FERROUS SULFATE 325 MG TABLET PO SCH ×2 (08:52→20:03)
[2020-08-07] MEDS: OLANZapine 5 MG TABLET PO SCH (10:48)
[2020-08-07] MEDS ORDERED: SODIUM PHOSPHATE INJ 30 MMOL in SODIUM CHLORIDE 0.9% 250 ML IV ONE (12:00)
[2020-08-07] MEDS: GENTAMICIN INJ 300 MG in SODIUM CHLORIDE 0.9% 100 ML IV SCH (15:51)
[2020-08-07] MEDS: rOPINIRole 0.25 MG TABLET PO SCH (20:01)
[2020-08-07] MEDS: MIRTAZAPINE 15 MG TABLET PO SCH (20:02)
[2020-08-08] MEDS: MEROPENEM 500 MG in SODIUM CHLORIDE 0.9% 100 ML IV SCH ×4 (01:13→20:43)
[2020-08-08 05:39] LABS: Basophils % 0.4 % (0.0-0.8); Eosinophils # 0.1 10*3/uL (0.0-0.87); Eosinophils % 3.1 % (0.00-10.9); Hematocrit 26.9 VOL% (42.0-52.0); Hemoglobin 8.4 GM/DL (14.0-18.0); Immature Granulocytes % 1.1 %; Immature Granulocytes Absolute 0.05 #; Lymphocytes # 1.2 10*3/uL (1.4-4.0); Lymphocytes % 26.4 % (21.2-54.2); Mean Corpuscular HGB Conc 31.2 GM/DL (32-36); Mean Corpuscular Volume 80.3 FL (87-102); Mean Platelet Volume 9.8 FL (9.6-12.0); Monocytes % 12.9 % (1.7-12.7); Neutrophils % 56.1 % (38.7-73.9); Platelet Count 254 T/CUMM (130-400); Red Blood Count 3.35 MC/CUMM (3.8-5.5); Red Cell Distribution Width 15.1 % (9.3-17.3); White Blood Count 4.5 T/CUMM (4-12)
[2020-08-08 05:50] LABS: INR 1.1; PT Patient Result 11.6 SECS (9.8-11.9)
[2020-08-08] MEDS ORDERED: LEVOFLOXACIN INJ 500 MG in PREMIX 1 EACH IV ONE (06:00)
[2020-08-08 06:07] LABS: Alanine Aminotransferase < 9 U/L (16-61); Albumin 2.3 G/DL (3.4-5.0); Alkaline Phosphatase 1024 U/L (45-117); Aspartate Amino Transferase 19 U/L (0-37); Blood Urea Nitrogen 12 MG/DL (7-18); Calcium 8.7 MG/DL (8.5-10.1); Estimated Glom Filtration Rate 112 ML/MIN; Glucose 97 MG/DL (74-106); Osmolality,Calculated 274.7 MOS/KG (273-304); Total Protein 6.2 G/DL (6.4-8.3)
[2020-08-08] MEDS: LINACLOTIDE 145 MCG CAPSULE PO SCH (06:41)
[2020-08-08] MEDS: SODIUM CHLORIDE 0.9% 1,000 ML IV SCH ×4 (07:00→21:39)
[2020-08-08] MEDS ORDERED: SODIUM PHOSPHATE INJ 30 MMOL in SODIUM CHLORIDE 0.9% 250 ML IV ONE (08:00)
[2020-08-08] MEDS ORDERED: NEOMYCIN/POLYMYXIN IRRIG SOLN 1 ML AMP BLADDERIRR ONE (08:54)
[2020-08-08] MEDS ORDERED: MIDAZOLAM 2 MG/2 ML VIAL ONE ×2 (09:04→09:17)
[2020-08-08] MEDS ORDERED: LIDOCAINE 2% 5 ML VIAL ONE (09:05)
[2020-08-08] MEDS ORDERED: fentaNYL 100 MCG/2 ML VIAL ONE (09:05)
[2020-08-08] MEDS ORDERED: LIDOCAINE 2% TOP JELLY 20 ML VIAL INTRAURETH ONE (09:26)
[2020-08-08] MEDS: BENZTROPINE 1 MG TABLET PO SCH ×3 (09:45→20:42)
[2020-08-08] MEDS: clonazePAM 0.5 MG TABLET PO SCH ×3 (09:45→20:42)
[2020-08-08] MEDS: GABAPENTIN 600 MG TABLET PO SCH ×5 (09:45→20:43)
[2020-08-08] MEDS ORDERED: PHENYLEPHRINE 1 MG/10 ML SYRINGE IV ONE (09:48)
[2020-08-08] MEDS ORDERED: propofoL 200 MG/20 ML VIAL IV ONE (09:48)
[2020-08-08] MEDS: OLANZapine 5 MG TABLET PO SCH (11:38)
[2020-08-08] MEDS: FERROUS SULFATE 325 MG TABLET PO SCH ×2 (11:40→20:42)
[2020-08-08] MEDS: TAMSULOSIN 0.4 MG CAPSULE PO SCH ×2 (11:40→20:41)
[2020-08-08] MEDS: FINASTERIDE 5 MG TABLET PO SCH (11:41)
[2020-08-08] MEDS: GENTAMICIN INJ 300 MG in SODIUM CHLORIDE 0.9% 100 ML IV SCH (13:11)
[2020-08-08] MEDS: rOPINIRole 0.25 MG TABLET PO SCH (20:41)
[2020-08-08] MEDS: MIRTAZAPINE 15 MG TABLET PO SCH (20:43)
[2020-08-09] MEDS: MEROPENEM 500 MG in SODIUM CHLORIDE 0.9% 100 ML IV SCH ×2 (01:06→09:27)
[2020-08-09 06:24] LABS: Basophils % 0.5 % (0.0-0.8); Eosinophils # 0.2 10*3/uL (0.0-0.87); Hematocrit 27.2 VOL% (42.0-52.0); Hemoglobin 8.7 GM/DL (14.0-18.0); Immature Granulocytes % 1.3 %; Immature Granulocytes Absolute 0.05 #; Lymphocytes # 1.1 10*3/uL (1.4-4.0); Lymphocytes % 28.6 % (21.2-54.2); Mean Corpuscular Volume 81.2 FL (87-102); Mean Platelet Volume 9.9 FL (9.6-12.0); Monocytes % 10.5 % (1.7-12.7); Neutrophils % 55.1 % (38.7-73.9); Platelet Count 224 T/CUMM (130-400); Red Blood Count 3.35 MC/CUMM (3.8-5.5); Red Cell Distribution Width 15.4 % (9.3-17.3); White Blood Count 3.7 T/CUMM (4-12)
[2020-08-09] MEDS: clonazePAM 0.5 MG TABLET PO SCH ×2 (09:28→15:33)
[2020-08-09] MEDS: GABAPENTIN 600 MG TABLET PO SCH ×2 (09:28→13:34)
[2020-08-09] MEDS: BENZTROPINE 1 MG TABLET PO SCH ×2 (09:28→15:33)
[2020-08-09] MEDS: TAMSULOSIN 0.4 MG CAPSULE PO SCH (09:28)
[2020-08-09] MEDS: FINASTERIDE 5 MG TABLET PO SCH (09:28)
[2020-08-09] MEDS: FERROUS SULFATE 325 MG TABLET PO SCH (09:28)
[2020-08-09] MEDS: LINACLOTIDE 145 MCG CAPSULE PO SCH (09:29)
[2020-08-09] MEDS: SODIUM CHLORIDE 0.9% 1,000 ML IV SCH (09:29)
[2020-08-09] MEDS: OLANZapine 5 MG TABLET PO SCH (09:32)
[2020-08-09 12:03] VITALS: BP 121/68
== END 2020-08-09 15:40 | DRG 723 ==
LOC: N.OR 06:12 → N.SDSINP 06:13 → N.4E 09:43 → N.TELEN 08-07 19:22
PROVIDERS: ADMIT Surgery; ATTEND Surgery

== ENCOUNTER 2021-03-29 20:53 | Observation (INO) ==
[2021-03-29] MEDS ORDERED: SODIUM CHLORIDE 0.9% 1,000 ML IV STA (21:27)
[2021-03-29] MEDS ORDERED: ACETAMINOPHEN 500 MG TABLET PO STA (21:27)
[2021-03-29 21:32] LABS: Basophils % 0.1 % (0.0-0.8); Hematocrit 34.9 VOL% (42.0-52.0); Hemoglobin 10.8 GM/DL (14.0-18.0); Immature Granulocytes % 1.1 %; Immature Granulocytes Absolute 0.08 #; Lymphocytes # 0.8 10*3/uL (1.4-4.0); Lymphocytes % 10.2 % (21.2-54.2); Mean Corpuscular HGB Conc 30.9 GM/DL (32-36); Mean Corpuscular Volume 78.8 FL (87-102); Mean Platelet Volume 9.7 FL (9.6-12.0); Neutrophils % 69.6 % (38.7-73.9); Platelet Count 362 T/CUMM (130-400); Red Blood Count 4.43 MC/CUMM (3.8-5.5); Red Cell Distribution Width 14.8 % (9.3-17.3); White Blood Count 7.3 T/CUMM (4-12)
[2021-03-29 21:40] LABS: INR 1.6; PT Patient Result 17.2 SECS (10.5-12.0)
[2021-03-29 21:57] LABS: Albumin 2.5 G/DL (3.4-5.0); Bilirubin,Total 0.5 MG/DL (0.20-1.00); Calcium 7.8 MG/DL (8.5-10.1); Osmolality,Calculated 285.7 MOS/KG (273-304); Potassium 4.2 MMOL/L (3.5-5.1); Total Protein 6.7 G/DL (6.4-8.2)
[2021-03-29 22:03] LABS: Amorphous Crystals,Urine Occasional /HPF (Few); Bilirubin,Urine Negative (Negative); Blood, Urine Moderate mg/dL (Negative); Glucose,Urine (UA) Negative (Negative); Ketones,Urine Negative (Negative); Mucus,Urine Occasional /LPF (Occasional); Nitrite,Urine Negative (Negative); Protein,Urine 100 MG/DL; RBC,Urine 5 /HPF (0-4); Squamous Epithelial Cell,Urine Occasional /HPF (0-10); Urine Appearance CLOUDY (Clear); Urine Color Amber (Yellow); Urine Specific Gravity 1.027 (1.001-1.035)
[2021-03-29 22:09] LABS: Hypochromasia 1+; Lymphocytes 16 % (20-55); Microcytosis 2+; Platelet Estimate Increased; Segmented Neutrophils 71 % (50-85); Total Cells Counted 100
[2021-03-29 22:10] LABS: Polychromasia Slight
[2021-03-29] MEDS ORDERED: ACETAMINOPHEN 650 MG SUPP RECTAL STA (22:10)
[2021-03-29 22:11] LABS: Schistocytes Slight
[2021-03-29] MEDS ORDERED: LEVOFLOXACIN INJ 500 MG/100 ML PREMIX IV STA (23:14)
[2021-03-30] MEDS ORDERED: GLUCAGON 1 MG VIAL IM PRN (00:45)
[2021-03-30] MEDS ORDERED: DEXTROSE 50% 25 GM/50 ML VIAL IV PRN (00:45)
[2021-03-30] MEDS ORDERED: ONDANSETRON 4 MG/2 ML VIAL IV PRN (00:46)
[2021-03-30] MEDS ORDERED: ACETAMINOPHEN 325 MG TABLET PO PRN (00:46)
[2021-03-30] MEDS ORDERED: SODIUM CHLORIDE 0.9% 1,000 ML IV SCH (01:00)
[2021-03-30 08:07] LABS: Hematocrit 34.5 VOL% (42.0-52.0); Hemoglobin 10.5 GM/DL (14.0-18.0); Immature Granulocytes % 0.7 %; Immature Granulocytes Absolute 0.05 #; Lymphocytes # 1.1 10*3/uL (1.4-4.0); Lymphocytes % 14.7 % (21.2-54.2); Mean Corpuscular HGB Conc 30.4 GM/DL (32-36); Mean Corpuscular Volume 79.5 FL (87-102); Mean Platelet Volume 9.6 FL (9.6-12.0); Monocytes % 21.1 % (1.7-12.7); Neutrophils % 63.5 % (38.7-73.9); Platelet Count 349 T/CUMM (130-400); Red Blood Count 4.34 MC/CUMM (3.8-5.5); Red Cell Distribution Width 14.9 % (9.3-17.3); White Blood Count 7.2 T/CUMM (4-12)
[2021-03-30 08:30] LABS: Nucleated Red Blood Cells 1 (0-5); Total Cells Counted 100
[2021-03-30 08:32] LABS: Atypical Lymphocytes Few; Band Neutrophils 2 % (0-10); Hypochromasia 1+; Lymphocytes 19 % (20-55); Microcytosis 1+; Ovalocytes Slight; Platelet Estimate Adequate; Segmented Neutrophils 65 % (50-85)
[2021-03-30 08:43] LABS: Albumin 2.3 G/DL (3.4-5.0); Bilirubin,Total 0.5 MG/DL (0.20-1.00); Calcium 8.5 MG/DL (8.5-10.1); Osmolality,Calculated 286.4 MOS/KG (273-304); Potassium 4.3 MMOL/L (3.5-5.1); Total Protein 7.3 G/DL (6.4-8.2)
[2021-03-30] MEDS ORDERED: ENOXAPARIN 40 MG/0.4 ML SYRINGE SUBCUT SCH (09:00)
[2021-03-30] MEDS ORDERED: BICALUTAMIDE 50 MG TABLET PO SCH (09:00)
[2021-03-30 16:45] VITALS: BP 118/60
[2021-03-30] MEDS ORDERED: LEVOFLOXACIN INJ 500 MG/100 ML PREMIX IV SCH (23:00)
[2021-03-31] MEDS ORDERED: LEVOFLOXACIN 500 MG TABLET PO SCH (09:00)
== END 2021-03-30 17:50 ==
LOC: N.ED 20:53 → N.EDINP 20:53 → N.4E 03-30 05:41
PROVIDERS: ADMIT Internal Medicine; ATTEND Internal Medicine

== ENCOUNTER 2021-07-25 15:57 | Inpatient (IN) ==
[2021-07-25] MEDS ORDERED: SODIUM CHLORIDE 0.9% 2,000 ML IV STA ×2 (16:19→17:18)
[2021-07-25 16:48] LABS: Basophils % 0.2 % (0.0-0.8); Hematocrit 30.2 VOL% (42.0-52.0); Hemoglobin 9.4 GM/DL (14.0-18.0); Immature Granulocytes % 1.7 %; Lymphocytes # 0.9 10*3/uL (1.4-4.0); Mean Corpuscular HGB Conc 31.1 GM/DL (32-36); Mean Corpuscular Volume 79.5 FL (87-102); Mean Platelet Volume 10.8 FL (9.6-12.0); Monocytes % 14.7 % (1.7-12.7); Neutrophils % 75.4 % (38.7-73.9); Platelet Count 258 T/CUMM (130-400); Red Cell Distribution Width 16.5 % (9.3-17.3); White Blood Count 11.7 T/CUMM (4-12)
[2021-07-25 16:55] LABS: Alanine Aminotransferase 9 U/L (16-61); Albumin 2.3 G/DL (3.4-5.0); Alkaline Phosphatase 542 U/L (45-117); Aspartate Amino Transferase 24 U/L (0-37); Bilirubin,Total < 0.39 MG/DL (0.20-1.00); Blood Urea Nitrogen 79 MG/DL (7-18); Calcium 8.5 MG/DL (8.5-10.1); Carbon Dioxide 20 MMOL/L (21-32); Glucose 148 MG/DL (74-106); Potassium 5.1 MMOL/L (3.5-5.1); Sodium 136 MMOL/L (136-145); Total Protein 6.8 G/DL (6.4-8.2)
[2021-07-25 16:56] LABS: Estimated Glom Filtration Rate 0 ML/MIN
[2021-07-25 16:59] LABS: Anisocytosis 1+; Atypical Lymphocytes Few; Band Neutrophils 14 % (0-10); Hypochromasia Slight; Lymphocytes 11 % (20-55); Metamyelocytes 6 %; Microcytosis 1+; Segmented Neutrophils 56 % (50-85); Total Cells Counted 100
[2021-07-25 17:00] LABS: Platelet Estimate Normal
[2021-07-25] MEDS ORDERED: VANCOMYCIN INJ 1,000 MG in SODIUM CHLORIDE 0.9% 250 ML IV STA ×2 (17:04→17:05)
[2021-07-25] MEDS ORDERED: VANCOMYCIN INJ 1,000 MG in SODIUM CHLORIDE 0.9% 250 ML IV SCH (17:30)
[2021-07-25 17:31] LABS: Bilirubin,Urine Negative (Negative); Blood, Urine Negative (Negative); Glucose,Urine (UA) Negative (Negative); Ketones,Urine Negative (Negative); Mucus,Urine Many /LPF (Occasional); Nitrite,Urine Negative (Negative); Protein,Urine >=500 MG/DL; RBC,Urine 94 /HPF (0-4); Squamous Epithelial Cell,Urine Occasional /HPF (0-10); Urine Appearance CLOUDY (Clear); Urine Color Yellow (Yellow); Urine Specific Gravity 1.027 (1.001-1.035); Urine Urobilinogen < 2.0 EU/DL (0.2-1.0)
[2021-07-25] MEDS ORDERED: SODIUM CHLORIDE 0.9% 500 ML IV STA (17:56)
[2021-07-25] MEDS ORDERED: ALBUTEROL 2.5 MG/3 ML NEB RESP TX PRN (18:10)
[2021-07-25] MEDS ORDERED: ONDANSETRON 4 MG/2 ML VIAL IV PRN (18:11)
[2021-07-25] MEDS ORDERED: PHENYLEPHRINE DRIP 40 MG/250 ML PREMIX IV PRN (18:11)
[2021-07-25] MEDS ORDERED: LEVOFLOXACIN INJ 750 MG/150 ML PREMIX IV ONE (18:30)
[2021-07-25] MEDS ORDERED: cefTRIAXone 250 MG in SODIUM CHLORIDE 0.9% 100 ML IV SCH (18:30)
[2021-07-25] MEDS: DOPamine 800 MG/250 ML PREMIX IV SCH (18:36)
[2021-07-25] MEDS ORDERED: cefTRIAXone 250 MG VIAL ONE (19:24)
[2021-07-25] MEDS: ENOXAPARIN 30 MG/0.3 ML SYRINGE SUBCUT SCH (19:29)
[2021-07-25] MEDS: PANTOPRAZOLE 40 MG VIAL IV SCH (19:33)
[2021-07-25] MEDS: methylPREDNISolone SOD SUC 40 MG/1 ML VIAL IV SCH (19:35)
[2021-07-25] MEDS: MEROPENEM 500 MG in SODIUM CHLORIDE 0.9% 100 ML IV SCH (20:10)
[2021-07-25] MEDS: SODIUM CHLORIDE 0.9% 1,000 ML IV SCH (20:10)
[2021-07-25] MEDS: HYDROCORTISONE 100 MG VIAL IV SCH (21:00)
[2021-07-25] MEDS: GENTAMICIN INJ 120 MG/100 ML PREMIX IV SCH (21:03)
[2021-07-26 00:55] VITALS: BP 90/55
[2021-07-26] MEDS: SODIUM CHLORIDE 0.9% 1,000 ML IV SCH ×4 (03:14→20:48)
[2021-07-26] MEDS: MEROPENEM 500 MG in SODIUM CHLORIDE 0.9% 100 ML IV SCH ×4 (03:30→20:45)
[2021-07-26] MEDS: HYDROCORTISONE 100 MG VIAL IV SCH ×2 (03:31→13:53)
[2021-07-26 05:05] LABS: Basophils % 0.2 % (0.0-0.8); Hemoglobin 8.2 GM/DL (14.0-18.0); Immature Granulocytes % 1.2 %; Immature Granulocytes Absolute 0.13 #; Lymphocytes # 0.3 10*3/uL (1.4-4.0); Lymphocytes % 2.6 % (21.2-54.2); Mean Corpuscular HGB Conc 31.5 GM/DL (32-36); Mean Corpuscular Volume 78.1 FL (87-102); Mean Platelet Volume 9.6 FL (9.6-12.0); Monocytes % 6.9 % (1.7-12.7); Neutrophils % 89.1 % (38.7-73.9); Platelet Count 216 T/CUMM (130-400); Red Blood Count 3.33 MC/CUMM (3.8-5.5); Red Cell Distribution Width 16.5 % (9.3-17.3); White Blood Count 11.3 T/CUMM (4-12)
[2021-07-26 05:29] LABS: Band Neutrophils 7 % (0-10); Hypochromasia 1+; Lymphocytes 6 % (20-55); Microcytosis 1+; Platelet Estimate Adequate; Segmented Neutrophils 83 % (50-85); Total Cells Counted 100
[2021-07-26 05:37] LABS: Albumin 2.1 G/DL (3.4-5.0); Bilirubin,Total 0.4 MG/DL (0.20-1.00); Calcium 8.6 MG/DL (8.5-10.1); Potassium 4.4 MMOL/L (3.5-5.1); Thyroid Stimulating Hormone 0.282 uIU/ml (0.358-3.74); Total Protein 6.3 G/DL (6.4-8.2)
[2021-07-26] MEDS: methylPREDNISolone SOD SUC 40 MG/1 ML VIAL IV SCH ×2 (06:45→18:05)
[2021-07-26] MEDS: OLANZapine 5 MG TABLET PO SCH (09:30)
[2021-07-26] MEDS: BENZTROPINE 0.5 MG TABLET PO SCH ×3 (09:32→21:16)
[2021-07-26] MEDS: GABAPENTIN 400 MG CAPSULE PO SCH ×3 (09:32→21:16)
[2021-07-26] MEDS: rOPINIRole 0.25 MG TABLET PO SCH ×3 (09:35→21:16)
[2021-07-26] MEDS: TAMSULOSIN 0.4 MG CAPSULE PO SCH ×2 (09:38→21:16)
[2021-07-26] MEDS: DIVALPROEX 250 MG TABLET PO SCH ×2 (09:42→21:16)
[2021-07-26] MEDS: POLYETHYLENE GLYCOL POWDER 17 GM PACK PO SCH (09:43)
[2021-07-26] MEDS: LINACLOTIDE 145 MCG CAPSULE PO SCH (09:43)
[2021-07-26] MEDS: MULTIVITAMIN (CENTRUM) TABLET PO SCH (09:43)
[2021-07-26] MEDS: GENTAMICIN INJ 120 MG/100 ML PREMIX IV SCH (09:53)
[2021-07-26] MEDS ORDERED: HYDROCORTISONE 100 MG VIAL ONE (13:47)
[2021-07-26] MEDS: ENOXAPARIN 30 MG/0.3 ML SYRINGE SUBCUT SCH (18:04)
[2021-07-26] MEDS: PANTOPRAZOLE 40 MG VIAL IV SCH (18:05)
[2021-07-26] MEDS: DOPamine 800 MG/250 ML PREMIX IV SCH (20:47)
[2021-07-27] MEDS: SODIUM CHLORIDE 0.9% 1,000 ML IV SCH (00:01)
[2021-07-27] MEDS: MEROPENEM 500 MG in SODIUM CHLORIDE 0.9% 100 ML IV SCH ×4 (01:30→20:14)
[2021-07-27 04:16] LABS: Hemoglobin 7.9 GM/DL (14.0-18.0); Immature Granulocytes % 0.8 %; Immature Granulocytes Absolute 0.08 #; Lymphocytes # 0.4 10*3/uL (1.4-4.0); Lymphocytes % 3.4 % (21.2-54.2); Mean Corpuscular HGB Conc 30.4 GM/DL (32-36); Mean Corpuscular Volume 78.3 FL (87-102); Mean Platelet Volume 10.5 FL (9.6-12.0); Monocytes % 5.4 % (1.7-12.7); Neutrophils % 90.4 % (38.7-73.9); Platelet Count 213 T/CUMM (130-400); Red Blood Count 3.32 MC/CUMM (3.8-5.5); Red Cell Distribution Width 16.7 % (9.3-17.3); White Blood Count 10.2 T/CUMM (4-12)
[2021-07-27 04:36] LABS: Band Neutrophils 1 % (0-10); Hypochromasia 1+; Lymphocytes 4 % (20-55); Segmented Neutrophils 91 % (50-85); Total Cells Counted 100
[2021-07-27 04:37] LABS: Microcytosis 1+
[2021-07-27 05:13] LABS: Albumin 1.9 G/DL (3.4-5.0); Bilirubin,Total 0.7 MG/DL (0.20-1.00); Calcium 8.3 MG/DL (8.5-10.1); Osmolality,Calculated 319.1 MOS/KG (273-304); Potassium 3.7 MMOL/L (3.5-5.1); Total Protein 5.8 G/DL (6.4-8.2)
[2021-07-27] MEDS: methylPREDNISolone SOD SUC 40 MG/1 ML VIAL IV SCH ×2 (06:48→18:02)
[2021-07-27] MEDS: rOPINIRole 0.25 MG TABLET PO SCH ×3 (09:17→20:13)
[2021-07-27] MEDS: POLYETHYLENE GLYCOL POWDER 17 GM PACK PO SCH (09:17)
[2021-07-27] MEDS: OLANZapine 5 MG TABLET PO SCH (09:17)
[2021-07-27] MEDS: TAMSULOSIN 0.4 MG CAPSULE PO SCH ×2 (09:17→20:13)
[2021-07-27] MEDS: LINACLOTIDE 145 MCG CAPSULE PO SCH (09:17)
[2021-07-27] MEDS: DIVALPROEX 250 MG TABLET PO SCH ×2 (09:17→20:14)
[2021-07-27] MEDS: GABAPENTIN 400 MG CAPSULE PO SCH ×3 (09:17→20:13)
[2021-07-27] MEDS: MULTIVITAMIN (CENTRUM) TABLET PO SCH (09:17)
[2021-07-27] MEDS: BENZTROPINE 0.5 MG TABLET PO SCH ×3 (09:17→20:14)
[2021-07-27] MEDS: SODIUM CHLORIDE 0.45% 1,000 ML IV SCH ×2 (10:23→19:01)
[2021-07-27] MEDS: PANTOPRAZOLE 40 MG VIAL IV SCH (18:01)
[2021-07-27] MEDS: ENOXAPARIN 30 MG/0.3 ML SYRINGE SUBCUT SCH (18:01)
[2021-07-27] MEDS ORDERED: LEVOFLOXACIN INJ 500 MG/100 ML PREMIX IV SCH (18:30)
[2021-07-28] MEDS: MEROPENEM 500 MG in SODIUM CHLORIDE 0.9% 100 ML IV SCH ×4 (01:17→20:38)
[2021-07-28] MEDS: SODIUM CHLORIDE 0.45% 1,000 ML IV SCH (03:06)
[2021-07-28 04:31] LABS: Basophils % 0.1 % (0.0-0.8); Hematocrit 26.3 VOL% (42.0-52.0); Hemoglobin 8.2 GM/DL (14.0-18.0); Immature Granulocytes % 1.5 %; Immature Granulocytes Absolute 0.17 #; Lymphocytes # 0.6 10*3/uL (1.4-4.0); Mean Corpuscular HGB Conc 31.2 GM/DL (32-36); Mean Corpuscular Volume 79.7 FL (87-102); Mean Platelet Volume 11.1 FL (9.6-12.0); Monocytes % 6.7 % (1.7-12.7); Neutrophils % 86.7 % (38.7-73.9); Platelet Count 166 T/CUMM (130-400); Red Cell Distribution Width 16.8 % (9.3-17.3); White Blood Count 11.7 T/CUMM (4-12)
[2021-07-28 04:41] LABS: Alanine Aminotransferase 20 U/L (16-61); Alkaline Phosphatase 531 U/L (45-117); Aspartate Amino Transferase 33 U/L (0-37); Bilirubin,Total < 0.39 MG/DL (0.20-1.00); Blood Urea Nitrogen 52 MG/DL (7-18); Calcium 8.2 MG/DL (8.5-10.1); Carbon Dioxide 26 MMOL/L (21-32); Estimated Glom Filtration Rate 77 ML/MIN; Glucose 172 MG/DL (74-106); Osmolality,Calculated 313.1 MOS/KG (273-304); Potassium 3.9 MMOL/L (3.5-5.1); Sodium 149 MMOL/L (136-145); Total Protein 5.8 G/DL (6.4-8.2)
[2021-07-28] MEDS: methylPREDNISolone SOD SUC 40 MG/1 ML VIAL IV SCH ×2 (05:33→08:11)
[2021-07-28] MEDS: MULTIVITAMIN (CENTRUM) TABLET PO SCH (08:10)
[2021-07-28] MEDS: GABAPENTIN 400 MG CAPSULE PO SCH ×3 (08:10→20:39)
[2021-07-28] MEDS: DIVALPROEX 250 MG TABLET PO SCH ×2 (08:10→20:40)
[2021-07-28] MEDS: BENZTROPINE 0.5 MG TABLET PO SCH ×3 (08:10→20:39)
[2021-07-28] MEDS: TAMSULOSIN 0.4 MG CAPSULE PO SCH ×2 (08:10→20:39)
[2021-07-28] MEDS: POLYETHYLENE GLYCOL POWDER 17 GM PACK PO SCH (08:10)
[2021-07-28] MEDS: LINACLOTIDE 145 MCG CAPSULE PO SCH (08:10)
[2021-07-28] MEDS: rOPINIRole 0.25 MG TABLET PO SCH ×3 (08:10→20:39)
[2021-07-28] MEDS: OLANZapine 5 MG TABLET PO SCH (08:11)
[2021-07-28] MEDS: DEXT 5% NACL 0.45% KCL 20 MEQ 20 MEQ/1,000 ML BAG IV SCH ×2 (11:40→23:17)
[2021-07-28] MEDS: PANTOPRAZOLE 40 MG VIAL IV SCH (18:15)
[2021-07-28] MEDS: ENOXAPARIN 30 MG/0.3 ML SYRINGE SUBCUT SCH (18:15)
[2021-07-28] MEDS: FERROUS SULFATE 325 MG TABLET PO SCH (20:40)
[2021-07-29] MEDS: MEROPENEM 500 MG in SODIUM CHLORIDE 0.9% 100 ML IV SCH ×3 (01:17→17:27)
[2021-07-29 03:44] LABS: Basophils % 0.1 % (0.0-0.8); Hematocrit 26.1 VOL% (42.0-52.0); Immature Granulocytes % 1.7 %; Immature Granulocytes Absolute 0.17 #; Lymphocytes % 9.6 % (21.2-54.2); Mean Corpuscular HGB Conc 30.7 GM/DL (32-36); Mean Corpuscular Volume 79.3 FL (87-102); Mean Platelet Volume 10.9 FL (9.6-12.0); Monocytes % 10.6 % (1.7-12.7); Platelet Count 128 T/CUMM (130-400); Red Blood Count 3.29 MC/CUMM (3.8-5.5); Red Cell Distribution Width 16.4 % (9.3-17.3)
[2021-07-29 04:03] LABS: Alanine Aminotransferase 18 U/L (16-61); Albumin 1.8 G/DL (3.4-5.0); Alkaline Phosphatase 451 U/L (45-117); Aspartate Amino Transferase 18 U/L (0-37); Bilirubin,Total < 0.39 MG/DL (0.20-1.00); Blood Urea Nitrogen 41 MG/DL (7-18); Calcium 8.3 MG/DL (8.5-10.1); Carbon Dioxide 26 MMOL/L (21-32); Estimated Glom Filtration Rate 110 ML/MIN; Glucose 160 MG/DL (74-106); Osmolality,Calculated 306.3 MOS/KG (273-304); Potassium 3.8 MMOL/L (3.5-5.1); Sodium 148 MMOL/L (136-145); Total Protein 5.3 G/DL (6.4-8.2)
[2021-07-29] MEDS: rOPINIRole 0.25 MG TABLET PO SCH ×3 (08:40→20:42)
[2021-07-29] MEDS: OLANZapine 5 MG TABLET PO SCH (08:40)
[2021-07-29] MEDS: BENZTROPINE 0.5 MG TABLET PO SCH ×3 (08:41→20:43)
[2021-07-29] MEDS: TAMSULOSIN 0.4 MG CAPSULE PO SCH ×2 (08:41→20:43)
[2021-07-29] MEDS: MULTIVITAMIN (CENTRUM) TABLET PO SCH (08:41)
[2021-07-29] MEDS: GABAPENTIN 400 MG CAPSULE PO SCH ×3 (08:41→20:43)
[2021-07-29] MEDS: DIVALPROEX 250 MG TABLET PO SCH ×2 (08:41→20:42)
[2021-07-29] MEDS: FERROUS SULFATE 325 MG TABLET PO SCH ×2 (08:41→20:43)
[2021-07-29] MEDS: POLYETHYLENE GLYCOL POWDER 17 GM PACK PO SCH (08:42)
[2021-07-29] MEDS: LINACLOTIDE 145 MCG CAPSULE PO SCH (08:42)
[2021-07-29] MEDS: methylPREDNISolone SOD SUC 40 MG/1 ML VIAL IV SCH (08:43)
[2021-07-29] MEDS: DEXTROSE 5% 1,000 ML IV SCH (12:32)
[2021-07-29] MEDS: ERTAPENEM 1,000 MG in SODIUM CHLORIDE 0.9% 100 ML IV SCH (16:05)
[2021-07-29] MEDS: ENOXAPARIN 30 MG/0.3 ML SYRINGE SUBCUT SCH (18:09)
[2021-07-29] MEDS: PANTOPRAZOLE 40 MG VIAL IV SCH (18:10)
[2021-07-30] MEDS: DEXTROSE 5% 1,000 ML IV SCH ×2 (03:22→16:42)
[2021-07-30 04:46] LABS: Basophils % 0.1 % (0.0-0.8); Eosinophils % 0.3 % (0.00-10.9); Hematocrit 26.9 VOL% (42.0-52.0); Hemoglobin 8.2 GM/DL (14.0-18.0); Immature Granulocytes % 5.2 %; Immature Granulocytes Absolute 0.46 #; Lymphocytes # 1.3 10*3/uL (1.4-4.0); Lymphocytes % 14.3 % (21.2-54.2); Mean Corpuscular HGB Conc 30.5 GM/DL (32-36); Mean Corpuscular Volume 78.7 FL (87-102); Mean Platelet Volume 11.3 FL (9.6-12.0); Monocytes % 12.6 % (1.7-12.7); Neutrophils % 67.5 % (38.7-73.9); Platelet Count 148 T/CUMM (130-400); Red Blood Count 3.42 MC/CUMM (3.8-5.5); Red Cell Distribution Width 16.3 % (9.3-17.3); White Blood Count 8.8 T/CUMM (4-12)
[2021-07-30 05:04] LABS: Calcium 8.2 MG/DL (8.5-10.1); Osmolality,Calculated 293.8 MOS/KG (273-304); Potassium 3.8 MMOL/L (3.5-5.1)
[2021-07-30 05:20] LABS: Hypochromasia 1+; Lymphocytes 10 % (20-55); Microcytosis 1+; Platelet Estimate Adequate; Segmented Neutrophils 79 % (50-85); Total Cells Counted 100
[2021-07-30] MEDS: GABAPENTIN 400 MG CAPSULE PO SCH ×2 (09:15→14:20)
[2021-07-30] MEDS: DIVALPROEX 250 MG TABLET PO SCH (09:16)
[2021-07-30] MEDS: TAMSULOSIN 0.4 MG CAPSULE PO SCH (09:16)
[2021-07-30] MEDS: FERROUS SULFATE 325 MG TABLET PO SCH (09:16)
[2021-07-30] MEDS: MULTIVITAMIN (CENTRUM) TABLET PO SCH (09:16)
[2021-07-30] MEDS: LINACLOTIDE 145 MCG CAPSULE PO SCH (09:16)
[2021-07-30] MEDS: BENZTROPINE 0.5 MG TABLET PO SCH ×2 (09:17→14:18)
[2021-07-30] MEDS: OLANZapine 5 MG TABLET PO SCH (12:11)
[2021-07-30] MEDS: rOPINIRole 0.25 MG TABLET PO SCH ×2 (12:11→16:42)
[2021-07-30] MEDS: POLYETHYLENE GLYCOL POWDER 17 GM PACK PO SCH (12:11)
[2021-07-30] MEDS: ERTAPENEM 1,000 MG in SODIUM CHLORIDE 0.9% 100 ML IV SCH (14:17)
== END 2021-07-30 16:20 | disposition home health service (06) | DRG 871 ==
LOC: EDUNIT# → N.ED 15:57 → SUATTDRO 18:10 → N.EDINP 18:10 → N.CC 18:42
PROVIDERS: ADMIT Internal Medicine; ATTEND Internal Medicine